=== PATIENT | male | born 1965 | race Caucasian/White ===

== ENCOUNTER 2021-11-12 06:10 | Day surgery (SDC) | payer BC, SELFPAY ==
[2021-11-12] VITALS (13 sets, daily range): BP systolic 102–139; BP diastolic 72–92; PULSE 78–93; RESP 12–16; TEMP 36.1–36.2; O2SAT 92–96; BMI 37.1
[2021-11-12] MEDS: LACTATED RINGERS 1000 ML 1,000 ML 100 ML IV (06:30)
[2021-11-12] MEDS: BUPIVACAINE 0.25% 30 ML 15 ML INJECTION (08:25)
--- NOTE | 2021-11-12 10:15 | W.ANESCHARGE ---
Anesthesia Charges Start Date/Time Anesthesia Start Date: 11/12/21 Anesthesia Start Time: 07:29 Stop Date/Time Anesthesia Stop Date: 11/12/21 Anesthesia Stop Time: 08:44 Summary Emergency: No
[2021-11-12] MEDS: SODIUM CHLORIDE 0.9 % (FLUSH) 10 ML SYRINGE IVF (10:34)
--- NOTE | 2021-11-12 10:40 | PM.GSPRC ---
Operative Note Date of procedure: 11/12/21 Pre-op diagnosis: 1. Symptomatic umbilical hernia. Post-op diagnosis: same ( 1. Incarcerated umbilical hernia.) Type of Procedure: 1. Open umbilical hernia repair with mesh. Procedure Description: After informed consent was obtained, the patient was brought to the operating room. The patient was positioned supine on the operating table and intubated by anesthesia. Surgical field was prepped and draped in the usual sterile fashion. A time-out was performed and patient's identity was confirmed. Local anesthetic was injected at the surgical site. A curvilinear skin incision was made with a scalpel just above umbilicus. Subcutaneous tissue was dissected with electrocautery down to the hernia sac and anterior fascia. The hernia sac was dissected off of the anterior fascia and subcutaneous fat around the fascial defect was dissected away from the fascial defect with cautery. Preperitoneal fat was incarcerated through the fascial defect. The fascial defect was approximately 1.2 cm. The preperitoneal fat was then dissected away from the fascia and reduced.I then developed preperitoneal space for mesh insertion. A Small Ventralex ST mesh patch was then inserted into preperitoneal space and secured to the fascia using 0-0 Neurolon interrupted stitches. I examined my closure and no defects were identified between the fascia and the mesh. Fascia was re-approximated over the mesh with a running 2-0 Vicryl stitch. Additional local anesthetic was injected into subcutaneous tissues. An umbilicus was tacked down with interrupted 3-0 Vicryl stitches. Subdermal layer was closed with interrupted sutures using 3-0 Vicryl. Skin was closed with 4-0 Monocryl using subcuticular stitch. Steri strips were applied over the incision. I then placed a folded sterile 4x4 gauze over the incision and covered it with tape. All counts were correct at the end of the case. Patient tolerated the procedure well and was transferred to PACU without any complications. Findings: 1.2 cm fascial defect repaired with mesh. Anesthesia: GETA Surgeon: Yenni Newby MD Estimated blood loss (mL): 5 Pathology: none sent Condition: stable Disposition: PACU
--- NOTE | 2021-11-12 12:46 | W.ANESCHARGE ---
Anesthesia Charges Start Date/Time Anesthesia Start Date: 11/12/21 Anesthesia Start Time: 07:29 Stop Date/Time Anesthesia Stop Date: 11/12/21 Anesthesia Stop Time: 08:44 Summary Emergency: No
== END 2021-11-12 11:41 | disposition home or self-care (01) ==
PROVIDERS: PCP Family Medicine; Visit Provider Surgery
PROC: (CPT 49587; principal; 2021-11-12 07:30)
DX: K42.0 Umbilical hernia with obstruction, without gangrene (principal)
CPT/HCPCS: 49587; 750; 82947; 840; C1781; J0131; J0330; J0690; J1100; J1170; J1885; J2250; J2405; J2704; J3010; J3475; J3490; J7120

== ENCOUNTER 2022-01-07 10:48 | Outpatient (CLI) | payer OTHER, BC, SELFPAY ==
[2022-01-11 21:25] LABS: FACV Specimen Whole Blood; Factor V Leiden (F5) Mutation Heterozygous
== END 2022-01-07 10:49 | disposition home or self-care (01) ==
LOC: LONREF 10:49
PROVIDERS: PCP Family Medicine; Visit Provider Family Medicine
DX: D68.51 Activated protein C resistance (principal); I26.99 Other pulmonary embolism without acute cor pulmonale
CPT/HCPCS: 81241

== ENCOUNTER 2022-02-13 09:45 | Outpatient (RCR) | payer OTHER, BC, SELFPAY | END 2022-05-21 13:11 | disposition home or self-care (01) | PROVIDERS: PCP Family Medicine; Visit Provider Orthopaedic Surgery | DX: M25.561 Pain in right knee (principal); Z51.89 Encounter for other specified aftercare | CPT/HCPCS: 97110; 97116; 97140; 97161; 97750 ==

== ENCOUNTER 2025-05-16 18:33 | Outpatient (CLI) | payer BC, SELFPAY ==
--- NOTE | 2025-06-06 12:02 | W.PM.SLEEP ---
Sleep Study Details Details Interpreting Provider: Hira Date of Sleep Study: 05/16/25 Sleep Study Details: STUDY TYPE:? Home unattended ? BMI:? 28.07 ORDERING PROVIDER:? Hira INDICATION:? Concern for sleep apnea ? SLEEP SUMMARY:? 497 minutes monitored RESPIRATORY SUMMARY:? AHI 6.2 (AHI is 3.3 utilizing CMS guideline) Low oxygen 88 0.1% of study oxygen less than 90% Snoring 49.1% PERIODIC LIMB MOVEMENTS OF SLEEP:? Not recorded CARDIAC:? Range 58-104, mean 67.4 beats per minute IMPRESSION:? Mild obstructive sleep apnea RECOMMENDATION: Treatment options include CPAP dental appliance and/or airway expansion surgery.
== END 2025-05-16 18:34 | disposition home or self-care (01) ==
LOC: SLEEP 18:38
PROVIDERS: PCP Family Medicine; Visit Provider Otolaryngology
DX: G47.33 Obstructive sleep apnea (adult) (pediatric) (principal)
CPT/HCPCS: 95806